=== PATIENT | female | born 1975 | race African-American/Black ===

== ENCOUNTER 2017-08-26 13:02 | Emergency (ER) | payer MEDICAID ==
[~2017-08-26] VITALS: Ht 170.2 cm; Wt 83.9 kg
[~2017-08-26 13:02] MED LIST: BENAZEPRIL HCL10 MG; BENAZEPRIL HCL10 MG PO; DARVOCET-N 1001 EACH PO; FLUOXETINE HCL40 MG PO; HYDROCODONE-AP1 EAC6 PO; IBUPROFEN 600600 M1 PO; IBUPROFEN 800800 MG PO; LEVOTHYROXINE0.2 M1 PO; LYSTEDA650 MG; MEDROLDOSEPACK PO; NORCO 5-325 TA1 EACH PO; PENICILLIN VK250 MG PO; PENICILLIN VK500 M1 PO; PERCOCET 5-3251 EACH PO; PHENERGAN25 MG RE; PROAIR HFA8.5 GM; PROTONIX40 MG PO; PROVENTIL IH; REMERON 30 MG T30 MG; SEROQUEL 100 M100 M1 PO; STRATTERA25 MG PO; SYNTHROID300 MCG PO; VALIUM5 MG PO; VENTOLIN HFA INH8 GM INH; ZPAK PO
[2017-08-26] MEDS ORDERED: HYDROCHLOROTH12.5 M1 PO (13:15)
[2017-08-26] MEDS ORDERED: COZAAR 25 MG TA25 M1 PO (13:15)
[2017-08-26] MEDS ORDERED: ATIVAN0.5 MG PO (13:15)
[2017-08-26] MEDS ORDERED: CYCLOBENZAPRINE5 MG PO (13:35)
[2017-08-26] MEDS ORDERED: PREDNISONE 10 M10 MG PO (13:35)
[2017-08-26 13:49] VITALS: BP 133/88
== END 2017-08-26 13:50 | disposition home or self-care (01) ==
LOC: M.ERS 13:02
DX: M54.41 Lumbago with sciatica, right side (principal); M79.604 Pain in right leg; J45.909 Unspecified asthma, uncomplicated; E89.0 Postprocedural hypothyroidism; Z88.5 Allergy status to narcotic agent